=== PATIENT | female | born 1985 | race Caucasian/White ===

== ENCOUNTER 2018-10-14 11:41 | Observation (INO) | payer BC, OTHER ==
[~2018-10-14] VITALS: Ht 165.1 cm; Wt 70.3 kg
[~2018-10-14 11:41] MED LIST: CEPH500 PO; CIPR500 PO; DOCU100 PO; HYDACE5 PO; MULVITMINE; RXHYDACE PO
[2018-10-14 16:39] LABS: BASOPHILS ABSOLUTE AUTO 0.04 K/mm3 (0.00-0.23); BASOPHILS PERCENT AUTO 1 % (0-2); EOSINOPHILS ABSOLUTE AUTO 0.13 K/mm3 (0.00-0.68); EOSINOPHILS PERCENT AUTO 2 % (0-6); Hematocrit 41.5 % (33.0-51.0); Hemoglobin 13.8 g/dL (11.5-16.0); IMMATURE GRAN ABSOLUTE AUTO 0.01 K/mm3 (0.00-0.10); IMMATURE GRAN PERCENT AUTO 0 % (0-1); LYMPHOCYTES ABSOLUTE AUTO 1.96 K/mm3 (0.84-5.20); LYMPHOCYTES PERCENT AUTO 30 % (21-46); MONOCYTES ABSOLUTE AUTO 0.39 K/mm3 (0.16-1.47); MONOCYTES PERCENT AUTO 6 % (4-13); Mean Corpuscular HGB 30.5 pg (26.0-34.0); Mean Corpuscular HGB Conc 33.3 g/dL (31.5-36.5); Mean Corpuscular Volume 92 fL (80-100); Mean Platelet Volume 10.8 fL (9.1-12.4); NEUTROPHILS ABSOLUTE AUTO 3.93 K/mm3 (1.96-9.15); NEUTROPHILS PERCENT AUTO 61 % (41-73); Platelet Count 238 K/mm3 (150-400); RDW Coefficient Variation 12.8 % (11.7-14.2); RDW Standard Deviation 42.5 fL (35.1-46.3); Red Blood Cell Count 4.53 M/mm3 (3.80-5.20); White Blood Cell Count 6.46 K/mm3 (4.00-11.30)
[2018-10-14 17:05] LABS: Alanine Aminotransfer (ALT/SGP 15 U/L (12-78); Albumin, Blood 4.3 g/dL (3.4-5.0); Albumin/Globulin Ratio 1.1 (0.8-1.8); Alk Phos 52 U/L (50-136); Anion Gap 7 mmol/L (6-16); Aspartate Aminotrans (AST/SGOT 11 U/L (12-37); Bilirubin, Total 0.4 mg/dL (0.1-1.0); Blood Urea Nitrogen 6 mg/dL (8-24); Bun/Creatinine Ratio 8.7 (12.0-20.0); CO2, Blood 25 mmol/L (21-32); Calcium, Blood 8.4 mg/dL (8.5-10.1); Chloride, Blood 108 mmol/L (98-108); Creatinine, Blood 0.69 mg/dL (0.40-1.00); Globulin, Blood 3.8 g/dL (2.2-4.0); Glomerular Filtration Rate >60 (60-); Glucose, Blood 89 mg/dL (70-99); Potassium, Blood 3.6 mmol/L (3.5-5.5); Sodium, Blood 140 mmol/L (136-145); Total Protein, Blood 8.1 g/dL (6.4-8.2)
--- NOTE | 2018-10-15 02:26 | NUR ---
*LATE ENTRY [facility] 2039* RECEIVED HANDOFF REPORT RECEIVED HANDOFF REPORT FROM ED NURSE CYNTHIA. PT IS 33 YR OLD FEMALE, FULL CODE. 20 IV IN LFT AC. ON ROOM AIR, CONTINENT AND INDEPENDENT. PT NOT ON TELEMETRY. PT HAS PROBLEMS SWALLOWING (NONESOPHAGEAL STRICTURE?), LEADING TO NAUSEA THIS MORNING. WILL BE SEEN BY GASTROENTEROLOGY DR IN THE MORNING. SHE IS A&O X4. PT WAS TRANSFERED TO MEDICAL FLOOR WITHIN NORMAL LIMITS, AND ORIENTED TO THE FLOOR.
--- NOTE | 2018-10-15 04:08 | NUR ---
SHIFT SUMMARY ARRIVED A NEW ADMIT FROM ED DEPARTMENT AT [facility] JUST BEFORE 2100 HRS. SHE WAS A&O X4 THROUGHOUT SHIFT, INDEPENDENT IN ROOM. ADMIN OF IV FLUIDS ORDERED. MADE PT NPO (EXCEPT MEDS AND ICE CHIPS PER ORDER) AT MIDNIGHT SHE WILL HAVE AN UPPER ENDOSCOPY W/POSSIBLE ESOPHAGEAL DILATION IN THE MORNING. DR. BURT IS CONSULTING GI. NO REMARKABLE CHANGES THROUGHOUT SHIFT.
[2018-10-15 05:33] LABS: Hemoglobin 12.3 g/dL (11.5-16.0); Mean Corpuscular HGB 30.4 pg (26.0-34.0); Mean Corpuscular HGB Conc 33.2 g/dL (31.5-36.5); Mean Corpuscular Volume 92 fL (80-100); Mean Platelet Volume 11.2 fL (9.1-12.4); Platelet Count 208 K/mm3 (150-400); RDW Coefficient Variation 12.8 % (11.7-14.2); RDW Standard Deviation 42.8 fL (35.1-46.3); Red Blood Cell Count 4.04 M/mm3 (3.80-5.20); White Blood Cell Count 4.65 K/mm3 (4.00-11.30)
[2018-10-15 05:48] LABS: Anion Gap 8 mmol/L (6-16); Blood Urea Nitrogen 8 mg/dL (8-24); Bun/Creatinine Ratio 10.6 (12.0-20.0); CO2, Blood 26 mmol/L (21-32); Calcium, Blood 8.5 mg/dL (8.5-10.1); Chloride, Blood 110 mmol/L (98-108); Creatinine, Blood 0.75 mg/dL (0.40-1.00); Glomerular Filtration Rate >60 (60-); Glucose, Blood 83 mg/dL (70-99); Potassium, Blood 3.8 mmol/L (3.5-5.5); Sodium, Blood 144 mmol/L (136-145)
--- NOTE | 2018-10-15 13:33 | NUR ---
PATIENT TO DAY SURGERY FOR EGD.
--- NOTE | 2018-10-15 14:23 | NUR ---
10/15/18 1423 Kyle Alfaro 1410 PATIENT DETERMINED TO BE ASA APPROPRIATE FOR PROPOFOL SEDATION PRIOR TO START OF PROCEDURE BY 3-LEAD EKG REVIEWED WITH PHYSICIAN PRIOR TO START OF PROCEDURE.PATIENT CONFIRMS NPO STATUS AND AGREES WITH SCHEDULED PROCEDURE.History, Chart, Medications and Allergies reviewed before start of procedure.MONITOR INTACT WITH CONTINUOUS PULSE OXIMETRY AND INTERMITTENT BP.O2 VIA N/C INTACT THROUGHOUT SEDATION/PROCEDURE.Bite Block Placed
--- NOTE | 2018-10-15 14:50 | NUR ---
PATIENT RETURNED TO ROOM FROM EGD. VSS, ON RA. CLEAR LIQUID DIET ORDERED. PATIENT IS HOPING TO GO HOME THIS EVENING.
--- NOTE | 2018-10-15 19:03 | NUR ---
PATIENT A/OX4, UP INDEPENDENTLY IN ROOM. WENT DOWN FOR EGD TODAY WITH DILATION. PATIENT REPORTS SEVERE SORE THROAT. MORPHINE AND TYLENOL GIVEN TO TREAT WITH SOME RELIEF. ZOFRAN GIVENN X1 FOR NAUSEA. TOLERATING SMALL AMOUNT OF CLEAR DIET. CEPACOL LOZENGES ALSO ORDERED TO SOOTHE THROAT. VSS THIS SHIFT. SKIN INTACT. PLAN IS TO D/C IN AM AND FOLLOW UP WITH SPECIALIST OUTPATIENT.
--- NOTE | 2018-10-16 07:23 | NUR ---
Rn summary: Patient was anxious at beginning of shift. Pt having 9/10 esophogeal pain. Pt does not want morphine again, she had severe shakes afterward. Pt taking cepocol lozenges which help. At 2147 patient had a temp of 102.3. She had the shakes and was under 7 blankets. Pt took off blankets and walked in hallway. At 2300 pt temp was back to 98.3. Pt also has a headache and was medicated at 2305 with tylenol 650 mg, she requested them to be crushed and in water with honey. Pt has been able to sleep on and off. Continues to have headache and sore throat this am. has been at bedside. Call light in reach. Pt may be transferred to another hospital for possible surgery. Will continue to monitor.
[2018-10-16] MEDS ORDERED: ACET325 PO (14:08)
[2018-10-16] MEDS ORDERED: CEPACOL SORE T1 EACH MM (14:09)
[2018-10-16] MEDS ORDERED: ONDA4ODT MM (14:10)
[2018-10-16] MEDS ORDERED: PANT40 PO (14:10)
--- NOTE | 2018-10-16 14:15 | NUR ---
PATIENT D/C'D TO [facility] WITH S/O. RX MEDICATIONS FAXED TO [facility] IN [place]. D/C INSTRUCTIONS AND EDUCATION DISCUSSED WITH PATIENT AND COPY PROVIDED. PATIENT DENIES ANY FURTHER QUESTIONS OR CONCERNS.
== END 2018-10-16 14:40 ==
LOC: ER 11:41 → MEDS 11:42 → ERHOLD 11:42 → MEDS 20:34 → ENPENDDIS 10-16 13:08 → MEDS 10-16 14:40
PROVIDERS: Internal Medicine Gastroenterology; Physician Assistant; ADMIT Family Medicine
PROC: 0D738ZZ Dilation of Lower Esophagus, Via Natural or Artificial Opening Endoscopic (ICD-10-PCS; principal; 2018-10-15 14:00)
DX: K22.2 Esophageal obstruction (principal); K22.0 Achalasia of cardia; Q39.4 Esophageal web; Z88.5 Allergy status to narcotic agent; Z88.8 Allergy status to other drugs, medicaments and biological substances; Z23 Encounter for immunization
CPT/HCPCS: 36415; 76536; 80048; 80053; 84443; 84703; 85025; 85027; 90686; 96361; 96374; 96375; 96376; 99284-25; C1726; C9113; G0378; J2250; J2270; J2405; J7120